=== PATIENT | female | born 1960 | race Caucasian/White ===

== ENCOUNTER → 2021-06-09 10:51 | Outpatient (CLI) | payer OTHER, SELFPAY ==
--- NOTE | ~2021-06-09 | MM_ITS ---
EXAMINATION: MM screening [facility] HISTORY: Screening mammogram TECHNIQUE: Craniocaudal and mediolateral oblique 3-D tomosynthesis images were obtained and synthetic 2-D images were generated. CAD analysis was submitted and interpreted. COMPARISON: 01/18/2017 bilateral diagnostic mammogram 12/02/2016 bilateral screening mammogram BREAST PARENCHYMAL COMPOSITION: The breasts are heterogeneously dense, which may obscure small masses . FINDINGS: Scattered bilateral benign calcifications. There is no evidence of suspicious mass, calcifi cation, or architectural distortion to suggest malignancy in either breast. There has been no suspici ous interval change. IMPRESSION: 1. No mammographic evidence of malignancy. 2. Recommend routine screening mammography in one year. BI-RADS Category 2: Benign finding(s). Reviewed, dictated and finalized at location A.
--- NOTE | ~2021-06-09 | DEXA_ITS ---
Bone Density Report Name: Adrianna Brandt Age: 60 Sex: Female Ethnicity: White Date of : 1960 Indication: osteopenia; height loss; hysterectomy; postmenopausal Referring Provider: Yolande Laws Study: Bone densitometry was performed. Exam Date: June 09, 2021 Accession number: [id number] Bone Density: Region BMD T-score Z-score Classification AP Spine (L1, L2) 0.836 -1.3 0.2 Osteopenia Femoral Neck (Left) 0.571 -2.5 -1.1 Osteoporosis Total Hip (Left) 0.743 -1.6 -0.6 Osteopenia Femoral Neck (Right) 0.541 -2.8 -1.4 Osteoporosis Total Hip (Right) 0.761 -1.5 -0.4 Osteopenia Total Hip Mean 0.752 -1.6 -0.5 Osteopenia World Health Organization criteria for BMD impression classify patients as: Normal (T-score at or above -1.0), Osteopenia (T-score between -1.0 and -2.5), or Osteoporosis (T-score at or below -2.5). 10-year Fracture Risk: FRAX not reported because: Some T-score for Spine Total or Hip Total or Femoral Neck at or below -2.5 Previous Exams: Region Exam Age BMD T-score BMD Change BMD Change Date g/cm2 vs Baseline vs Previous AP Spine(L1, L2) 06/09/2021 60 0.836 -1.3 -0.001 -0.001 12/03/2016 56 0.837 -1.3 Total Hip(Left) 06/09/2021 60 0.743 -1.6 -0.026 -0.026 12/03/2016 56 0.769 -1.4 Total Hip(Right) 06/09/2021 60 0.761 -1.5 -0.008 -0.008 12/03/2016 56 0.769 -1.4 *Denotes significance at 95% confidence level, LSC for AP Spine = 0.022 g/cm2, LSC for Total Hip = 0.027 g/cm2 Clinical Information Provided by Patient: Smokes Has used the following medications: Vitamin D, Calcium Has the following medical conditions: Hysterectomy Patient maximum height was 62 Menopause Age: 37 No regular weight bearing exercise Does not regularly consume dairy products Drinks caffeinated beverages Onset of menses at age 11 Number of children 0 Impression: The patient has osteoporosis, based on the Right Femoral Neck T-score. The patient has risk factors, including: smoking. No significant bone loss was observed. Discussion: INCREASED RISK OF FRACTURE. BONE DENSITY IS UNDESIRABLY LOW AT ONE OR MORE SKELETAL SITES, CONSISTENT WITH POSTMENOPAUSAL OSTEOPOROSIS. This patient's lowest T-score meets the World Health Organization's (WHO) criteria for osteoporosis at one or more sites (T-score -2.5 or below). In untreated patients, the risk of osteoporotic fracture increases approximately two-
== END ==
PROVIDERS: PCP Family Medicine; Visit Provider Physician Assistant
DX: Z12.31 Encounter for screening mammogram for malignant neoplasm of breast (principal); Z13.820 Encounter for screening for osteoporosis; M81.0 Age-related osteoporosis without current pathological fracture; M85.88 Other specified disorders of bone density and structure, other site
CPT/HCPCS: 77063; 77067; 77080

== ENCOUNTER → 2022-06-11 09:40 | Outpatient (CLI) | payer OTHER, SELFPAY ==
--- NOTE | ~2022-06-11 | MM_ITS ---
EXAMINATION: MM screening [facility] BI w [facility] HISTORY: Screening mammogram TECHNIQUE: Craniocaudal and mediolateral oblique 3-D tomosynthesis images were obtained and synthetic 2-D images were generated. CAD analysis was submitted and interpreted. COMPARISON: 06/09/2021, 01/18/2017, 12/02/2016 BREAST PARENCHYMAL COMPOSITION: The breasts are heterogeneously dense, which may obscure small masses . FINDINGS: No suspicious mass, calcification, or architectural distortion are identified in either shantel ast to suggest malignancy. There has been no suspicious interval change. IMPRESSION: 1. No mammographic evidence of malignancy. 2. Recommend routine screening mammography in one year. BI-RADS Category 1: Negative Reviewed, dictated and finalized at location A.
== END ==
PROVIDERS: PCP Family Medicine; Visit Provider Family Medicine
DX: Z12.31 Encounter for screening mammogram for malignant neoplasm of breast (principal)
CPT/HCPCS: 77063; 77067

== ENCOUNTER → 2023-06-21 10:22 | Outpatient (CLI) | payer OTHER, SELFPAY ==
--- NOTE | ~2023-06-21 | DEXA_ITS ---
Bone Density Report Name: DENISE SHEPARD Age: 62 Sex: Female Ethnicity: White Date of : 1960 Indication: osteopenia; height loss; hysterectomy; postmenopausal Referring Provider: Clarice Fenton Study: Bone densitometry was performed. Exam Date: June 21, 2023 Accession number: [id number] Bone Density: Region BMD T-score Z-score Classification AP Spine (L1, L2) 0.857 -1.1 0.5 Osteopenia Femoral Neck (Left) 0.540 -2.8 -1.3 Osteoporosis Total Hip (Left) 0.706 -1.9 -0.8 Osteopenia Femoral Neck (Right) 0.531 -2.9 -1.4 Osteoporosis Total Hip (Right) 0.744 -1.6 -0.5 Osteopenia Total Hip Mean 0.725 -1.8 -0.7 Osteopenia World Health Organization criteria for BMD impression classify patients as: Normal (T-score at or above -1.0), Osteopenia (T-score between -1.0 and -2.5), or Osteoporosis (T-score at or below -2.5). 10-year Fracture Risk: FRAX not reported because: Some T-score for Spine Total or Hip Total or Femoral Neck at or below -2.5 Previous Exams: Region Exam Age BMD T-score BMD Change BMD Change Date g/cm2 vs Baseline vs Previous AP Spine(L1, L2) 06/21/2023 62 0.857 -1.1 0.019 0.020 06/09/2021 60 0.836 -1.3 -0.001 -0.001 12/03/2016 56 0.837 -1.3 Total Hip(Left) 06/21/2023 62 0.706 -1.9 -0.063* -0.037* 06/09/2021 60 0.743 -1.6 -0.026 -0.026 12/03/2016 56 0.769 -1.4 Total Hip(Right) 06/21/2023 62 0.744 -1.6 -0.025 -0.017 06/09/2021 60 0.761 -1.5 -0.008 -0.008 12/03/2016 56 0.769 -1.4 *Denotes significance at 95% confidence level, LSC for AP Spine = 0.022 g/cm2, LSC for Total Hip = 0.027 g/cm2 Clinical Information Provided by Patient: Smokes Has used the following medications: Reclast (i.e. zoledronate), Vitamin D, Calcium Has the following medical conditions: Hysterectomy Patient maximum height was 62 Menopause Age: 37 Drinks caffeinated beverages Onset of menses at age 11 Number of children 0 Impression: The patient has osteoporosis, based on the Right Femoral Neck T-score. The patient has risk factors, including: smoking. The BMD for the Total Hip(Left) decreased, changing by -0.037 since the last DXA exam. Discussion: INCREASED RISK OF FRACTURE. BONE DENSITY IS UNDESIRABLY LOW AT ONE OR MORE SKELETAL SITES, CONSISTENT WITH POSTMENOPAUSAL OSTEOPOROSIS. This patient's lowest T-score meets the
== END ==
PROVIDERS: PCP Family Medicine; Visit Provider Internal Medicine Endocrinology, Diabetes & Metabolism
DX: M81.0 Age-related osteoporosis without current pathological fracture (principal)
CPT/HCPCS: 77080

== ENCOUNTER 2025-06-28 15:20 | Outpatient (CLI) | payer MEDICARE, SELFPAY ==
--- NOTE | ~2025-06-28 | DEXA_ITS ---
Bone Density Report Name: DENISE SHEPARD Age: 65 Sex: Female Ethnicity: White Date of : 1960 Indication: osteopenia; monitoring treatment; height loss; inflammatory bowel disease; prior fracture; hysterectomy; Referring Provider: Clarice Fenton Study: Bone densitometry was performed. Exam Date: June 28, 2025 Accession number: [id number] Bone Density: Region BMD T-score Z-score Classification AP Spine(L1, L2) 0.860 -1.1 0.6 Osteopenia Femoral Neck (Left) 0.533 -2.8 -1.3 Osteoporosis Total Hip (Left) 0.712 -1.9 -0.6 Osteopenia Femoral Neck (Right) 0.568 -2.5 -1.0 Osteoporosis Total Hip (Right) 0.738 -1.7 -0.4 Osteopenia Total Hip Mean 0.725 -1.8 -0.5 Osteopenia World Health Organization criteria for BMD impression classify patients as: Normal (T-score at or above -1.0), Osteopenia (T-score between -1.0 and -2.5), or Osteoporosis (T-score at or below -2.5). 10-year Fracture Risk: FRAX not reported because: Some T-score for Spine Total or Hip Total or Femoral Neck at or below -2.5 Treated for osteoporosis Previous Exams: -- Region Exam Age BMD T-score BMD Change BMD Change Date g/cm2 vs Baseline vs Previous -- AP Spine (L1-L2) 06/28/2025 65 0.860 -1.1 2.7% 0.3% 06/21/2023 62 0.857 -1.1 2.3% 2.4% 06/09/2021 60 0.836 -1.3 -0.1% -0.1% 12/03/2016 56 0.837 -1.3 Total Hip(Left) 06/28/2025 65 0.712 -1.9 -7.4%* 0.8% 06/21/2023 62 0.706 -1.9 -8.2%* -5.0%* 06/09/2021 60 0.743 -1.6 -3.3% -3.3% 12/03/2016 56 0.769 -1.4 Total Hip(Right) 06/28/2025 65 0.738 -1.7 -4.0%* -0.8% 06/21/2023 62 0.744 -1.6 -3.2% -2.3% 06/09/2021 60 0.761 -1.5 -1.0% -1.0% 12/03/2016 56 0.769 -1.4 -- *Denotes significance at 95% confidence level, LSC for AP Spine = 0.022 g/cm2, LSC for Total Hip = 0.027 g/cm2 Clinical Information Provided by Patient: Has had a low trauma fracture Smokes Is being treated for osteoporosis Has used the following medications: HRT (i.e. estrogen/hormone therapy), Reclast (i.e. zoledronate), Vitamin D, Calcium Has the following medical conditions: Inflammatory bowel diseases, Hysterectomy Patient maximum height was 62 Menopause Age: 37 Drinks caffeinated beverages Onset of menses at age 11 Number of children 0 Impression: The patient has established osteoporosis, based on the Left Femoral Neck T-score and the existence of a prior fracture. The patient has risk factors, including: smoking, previous fracture. No significant bone loss was observed. Discussion: PATIENT UNDER TREATMENT WITH NO SIGNIFICANT BMD LOSS SINCE LAST EXAM. In an untreated patient, BMD typically declines with age. A lack of decline or gain is usually a sign that treatment is efficacious and fracture risk is reduced. It is important to ask patients whether they are taking their medications and to encourage continued and appropriate compliance with their osteoporosis therapies to reduce fracture risk. It is also important to review their risk factors and encourage appropriate calcium and vitamin D intakes, exercise, fall prevention and other lifestyle measures. Follow-Up: Consider a repeat BMD and Vertebral Fracture Assessment (VFA) exam in 2 years or sooner if medically necessary, to reassess this patient's status. Reported by: MIGUELITO on 06/28/2025 3:43:00 PM. Reviewed, dictated and finalized at location A.
== END 2025-06-28 15:21 | disposition home or self-care (01) ==
LOC: MICIMG 15:21
PROVIDERS: PCP Internal Medicine Endocrinology, Diabetes & Metabolism; Visit Provider Internal Medicine Endocrinology, Diabetes & Metabolism
DX: M81.0 Age-related osteoporosis without current pathological fracture (principal); M85.89 Other specified disorders of bone density and structure, multiple sites; Z78.0 Asymptomatic menopausal state
CPT/HCPCS: 77080